=== PATIENT | female | born 1940 | race Caucasian/White ===

== ENCOUNTER 2016-04-16 14:31 | Emergency (ER) | payer MEDICARE, BC ==
[~2016-04-16] VITALS: Ht 162.6 cm; Wt 59.1 kg
[~2016-04-16 14:31] MED LIST: ACET5SOL5 PO; ALBU0.086 NEB; BACT2OIN TOP; BROMDMS PO; CARB100 PO; CIME300T PO; CITRPOW PO; CLOR1TAB21 PO; CUTI0.053 TOP; EPIP0.3I IM; ESTR.1T TD; MAGN400S7 PO; NACL5%O TOP; SPIR25 PO; TRIA3AER; [UNRECOGNIZED DRUG - CODE] PO; [UNRECOGNIZED DRUG - CODE] TOP
[2016-04-16 14:34] VITALS: BP 158/77; PULSE 60; RESP 14; TEMP 98.9; O2SAT 93
[2016-04-16 17:02] VITALS: BP 182/78; PULSE 51; RESP 18; O2SAT 96
[2016-04-16] MEDS ORDERED: GLYCERIN ADULT 2 GM SUPP RECTAL ONE (17:45)
[2016-04-16] MEDS ORDERED: MAGNESIUM CITRATE SOLN 300 ML BTL PO ONE (17:45)
[2016-04-16] MEDS ORDERED: TRIA1SPR5 EACH NARE (18:26)
[2016-04-16] MEDS ORDERED: SPIR25TA PO (18:26)
[2016-04-16] MEDS ORDERED: FINA15GE TOPICAL (18:26)
[2016-04-16] MEDS ORDERED: CIME200T23 PO (18:26)
[2016-04-16] MEDS ORDERED: [UNRECOGNIZED DRUG - CODE] TOPICAL (18:26)
[2016-04-16] MEDS ORDERED: UREA20CR TOPICAL (18:26)
[2016-04-16] MEDS ORDERED: MILKSUS PO (18:26)
[2016-04-16] MEDS ORDERED: ESTR.1T T-DERMAL (18:26)
[2016-04-16] MEDS ORDERED: TYLE160S PO (18:26)
[2016-04-16] MEDS ORDERED: ELID1CRE TOPICAL (18:26)
[2016-04-16] MEDS ORDERED: CLOR3.755 PO (18:26)
[2016-04-16 19:07] VITALS: BP 169/88; PULSE 55; RESP 18; O2SAT 96
[2016-04-16] MEDS ORDERED: MAGNSOL2 PO (19:40)
[2016-04-16] MEDS ORDERED: MIRA33504 PO (19:40)
--- NOTE | 2016-04-16 19:40 | PD ---
HPI Chief Complaint: Abdominal Pain Time Seen by Provider: 17:10 Travel History International Travel<30 days: No Contact w/Intl Traveler<30days: No Traveled to known affect area: No History of Present Illness HPI This 75-year-old woman who presents to the emergency department complaining of abdominal pain and constipation. States she hasn't really had a bowel movement in 2 weeks. She has a small pellet stools this morning. She's been taking some milk of magnesia and some enemas which have really helped. States she's had trouble with constipation before but never bad enough raft to see a doctor. She does see Dr. Montano with GI for esophageal strictures, routine colonoscopies. Only abdominal surgery is a . She is described some bloating, some nausea and vomiting. She was otherwise well. History Past Medical History Narrative Medical Esophageal strictures GERD Anemia Leaky heart valves Influenza Vaccination: No Menopausal: Yes Social History Alcohol Use: No Tobacco Use: Yes (1 PPD) Allergies-Medications (Allergen,Severity, Reaction): Coded Allergies: Advair (Verified Allergy, Severe, HIVES, TONGUE SWELLS, 04/16/16) Erythromycin (Verified Allergy, Severe, CANT BREATHE, 04/16/16) Levaquin (Verified Allergy, Severe, "ATE SKIN OFF TONGUE AND INSIDE THROAT ", 04/16/16) Lisinopril (Verified Allergy, Severe, TONGUE SWELLING, 04/16/16) MRI PRECAUTION (Verified Allergy, Severe, PLATES, 04/16/16) Metronidazole (Verified Allergy, Severe, THROAT SWELLING, 04/16/16) Penicillin (Verified Allergy, Severe, THROAT SWELLING, 04/16/16) [place] (Verified Allergy, Severe, THROAT SWELLING, 04/16/16) Adhesives (Verified Allergy, Intermediate, SKIN SORES, 04/16/16) Ampicillin (Verified Allergy, Intermediate, HIVES, 04/16/16) Ceclor (Verified Allergy, Intermediate, HIVES, 04/16/16) Contrast Media (Verified Allergy, Intermediate, HEART FAST, HIVES, 04/16/16) Crab (Verified Allergy, Intermediate, SWELLING AND REDNESS, 04/16/16) Demerol (Verified Allergy, Intermediate, SORES IN MOUTH, 04/16/16) Doxycycline (Verified Allergy, Intermediate, HIVES, 04/16/16) Floxcin (Verified Allergy, Intermediate, HIVES, 04/16/16) Keflex (Verified Allergy, Intermediate, SORE TONGUE, 04/16/16) Novocain (Verified Allergy, Intermediate, LOCALIZED SWELLING, 04/16/16) Prednisone (Verified Allergy, Intermediate, "A LITTLE THROAT SWELLING", 04/16/16) Prozac (Verified Allergy, Intermediate, HIVES, 04/16/16) Scallop (Verified Allergy, Intermediate, SWELLING REDNESS, 04/16/16) Sulfa (Verified Allergy, Intermediate, FACE RED, WHEEZING, 04/16/16) Codeine (Verified Allergy, Mild, TONGUE SORE, 04/16/16) Cortisporin (Verified Allergy, Mild, LOCALIZED REDNESS, 04/16/16) Darvon (Verified Allergy, Mild, CANT FOCUS EYES, 04/16/16) Relafen (Verified Allergy, Mild, NUMBNESS, 04/16/16) Tetanus Toxoid (Verified Allergy, Mild, LOCALIZED ERYTHEMA, PAIN, 04/16/16) Valium (Verified Allergy, Mild, DEPRESSION, 04/16/16) Zantac (Verified Allergy, Mild, SORE TONGUE, 04/16/16) Aspirin (Verified Allergy, Unknown, 04/16/16) Azithromycin (Verified Allergy, Unknown, 04/16/16) Dulcolax (Verified Allergy, Unknown, 04/16/16) Latex (Verified Allergy, Unknown, 04/16/16) Pyridium (Verified Allergy, Unknown, 04/16/16) Cortisone (Verified Adverse Reaction, Mild, INCREASE SUGAR, 04/16/16) Uncoded Allergies: SPIRIVA (Allergy, Severe, SHORT OF BREATH/ CHOKING, 09/20/12) METROLOTION 0.75% (Allergy, Mild, RASH, 09/20/12) NORITATE CREAM (Allergy, Unknown, 09/20/12) ZOTANE (Allergy, Unknown, 09/20/12) Reported Meds & Prescriptions Reported Meds & Active Scripts Active Reported Tylenol Childrens Liq (Acetaminophen) 160 Mg/5 Ml Susp 20 Ml PO Q4-6H PRN Spironolactone 25 Mg Tab 25 Mg PO DAILY PRN Nasacort Allergy 24Hr (Triamcinolone Acetonide (Nasal) 55 Mcg/Act Spr 2 [place] EACH NARE BID PRN Tagamet Hb (Cimetidine) 200 Mg Tab 200 Mg PO DIRECTED PRN Milk of Magnesia Liq (Magnesium Hydroxide) 400 Mg/5 Ml Susp 60 Ml PO DAILY PRN Urea 20 % Cre 1 Applic TOPICAL BID Apply to face Finacea Topical (Azelaic Acid) 15% Gel 1 Applic TOPICAL BID Apply and gently massage a thin layer into affected areas on the face. Elidel 1% Topical (Pimecrolimus 1% Topical) 30 Gram Cream 1 Applic TOPICAL BID Apply to face [place]-Smoothe/Fs Scalp Topical (Fluocinolone Topical) 0.01 % Oil 1 Applic TOPICAL DAILY Apply to ears [place] Patch 168 HR (Estradiol) 0.1 Mg/24 Hr Patch 1 Patch T-DERMAL EVERY 5 DAYS Remove old patch and discrad when new patch being placed. Clorazepate (Clorazepate Dipotassium) 3.75 Mg Tab 5.625 Mg PO TID Review of Systems Except as stated in HPI: all other systems reviewed are Neg Physical Exam Narrative GENERAL: 75 year-old woman, no acute distress. SKIN: Warm and dry. HEAD: Atraumatic. Normocephalic. CARDIOVASCULAR: Regular rate and rhythm. No murmur appreciated. RESPIRATORY: No accessory muscle use. Clear to auscultation. Breath sounds equal bilaterally. GASTROINTESTINAL: Normal contour and appearance. Left lower abdomen mild tenderness. Hyperactive bowel sounds. MUSCULOSKELETAL: No obvious deformities. No edema. NEUROLOGICAL: Awake and alert. No obvious cranial nerve deficits. Motor grossly within normal limits. Normal speech. PSYCHIATRIC: Appropriate mood and affect; insight and judgment normal. RECTAL: Hard stools in the rectal vault, disimpacted. Data Data Last Documented VS Vital Signs Date Time Temp Pulse Resp B/P Pulse Ox O2 Delivery O2 Flow Rate FiO2 04/16/16 19:07 55 18 169/88 96 Room Air 04/16/16 14:34 98.9 Orders Glycerin Adult Supp (Glycerin Adult Supp (04/16/16 17:45) Magnesium Citrate Liq (Citroma Liq) (04/16/16 17:45) MDM Medical Decision Making Medical Screen Exam Complete: Yes Emergency Medical Condition: Yes Differential Diagnosis Impaction, obstruction, vomiting, other Narrative Course Medical decision making 75 year-old woman with constipation, fecal impaction on exam, now disimpacted. Given glycerin suppositories and mag citrate. Some response but not substantial. Recommend MiraLAX, one more dose of magnesium citrate tomorrow, follow-up with Dr. Hilario. I don't think she has complete obstruction, or needs imaging at this time. She will return for any worsening pain, vomiting, or any other new or worsening symptoms. Diagnosis Primary Impression: Fecal impaction in rectum Additional Instructions: Continue MiraLAX tonight as prescribed. If no substantial bowel movement in 24 hours, take second dose of magnesium citrate. If you have any worsening pain, any vomiting, return to the emergency department. Follow-up with your residential appraiser in the next one to 2 weeks. Med/Other Pt SpecificInfo: Prescription(s) given Scripts Magnesium Citrate Liq 300 Ml [id number] Ml PO DIRECTED #1 BOTTLE Prov:Jaswinder Elizabeth MD 04/16/16 Polyethylene Glycol 3350 Powder (Miralax Powder)17 Gm Powd17 Gm PO DAILY #1 BOTTLE Mix and dissolve one measuring cap-ful (17 grams) in water or juice. Prov:Jaswinder Elizabeth MD 04/16/16 Disposition: 01 DISCHARGE HOME Condition: Stable Jaswinder Elizabeth MD Apr 16, 2016 19:40
== END 2016-04-16 20:25 | disposition home or self-care (01) ==
LOC: NEPE 14:31
DX: K56.41 Fecal impaction (principal); R11.2 Nausea with vomiting, unspecified; K22.2 Esophageal obstruction; F17.210 Nicotine dependence, cigarettes, uncomplicated
CPT/HCPCS: 99283

== ENCOUNTER 2017-06-20 15:21 | Emergency (ER) | payer MEDICARE, BC ==
[~2017-06-20 15:21] MED LIST changes: -ACET5SOL5 PO; -ALBU0.086 NEB; -BACT2OIN TOP; -BROMDMS PO; -CARB100 PO; +CIME200T23 PO; -CIME300T PO; -CITRPOW PO; -CLOR1TAB21 PO; +CLOR3.755 PO; -CUTI0.053 TOP; +ELID1CRE TOPICAL; -EPIP0.3I IM; +ESTR.1T T-DERMAL; -ESTR.1T TD; +FINA15GE TOPICAL; -MAGN400S7 PO; +MAGNSOL2 PO; +MILKSUS PO; +MIRA33504 PO; -NACL5%O TOP; -SPIR25 PO; +SPIR25TA PO; +TRIA1SPR5 EACH NARE; -TRIA3AER; +TYLE160S PO; +UREA20CR TOPICAL; -[UNRECOGNIZED DRUG - CODE] PO; -[UNRECOGNIZED DRUG - CODE] TOP; +[UNRECOGNIZED DRUG - CODE] TOPICAL
[2017-06-20 15:31] VITALS: BP 154/79; PULSE 65; RESP 18; TEMP 97.7; O2SAT 97
[2017-06-20 17:21] LABS: AUTOMATED NEUTROPHIL # 4.5 TH/MM3 (1.8-7.7); BASOPHIL # 0.1 TH/MM3 (0-0.2); BASOPHIL % 0.7 % (0.0-2.0); EOSINOPHIL # 0.1 TH/MM3 (0-0.4); EOSINOPHIL % 1.5 % (0.0-4.0); HEMATOCRIT 41.1 % (35.0-46.0); HEMOGLOBIN 14.4 GM/DL (11.6-15.3); LYMPH % 31.4 % (9.0-44.0); LYMPHOCYTE # 2.5 TH/MM3 (1.0-4.8); MEAN CORPUSCULAR HEMOGLOBIN 31.2 PG (27.0-34.0); MEAN CORPUSCULAR HGB CONC 35.1 % (32.0-36.0); MEAN PLATELET VOLUME 8.5 FL (7.0-11.0); MONO % 9.7 % (0.0-8.0); MONOCYTE # 0.8 TH/MM3 (0-0.9); NEUT % 56.7 % (16.0-70.0); PLATELET COUNT 194 TH/MM3 (150-450); RED BLOOD COUNT 4.61 MIL/MM3 (4.00-5.30); RED CELL DISTRIBUTION WIDTH 12.6 % (11.6-17.2); WHITE BLOOD COUNT 7.9 TH/MM3 (4.0-11.0)
--- NOTE | 2017-06-20 17:29 | PD ---
HPI Chief Complaint: GI Complaint Time Seen by Provider: 17:29 Travel History International Travel<30 days: No Contact w/Intl Traveler<30days: No Traveled to known affect area: No History of Present Illness HPI 76-year-old female presents to emergency department for evaluation of lower abdominal pain. This is the worsening over last 9 days. She states she has not had a bowel movement in 9 days except for a very small one today. She reports urinary urgency but no pain with urination. She is concerned because she has history of diverticulitis and feels like this may be that however the pain is not as severe. It is moderate in cramping in sensation. It is intermittently worse. Denies any fever or chills. No nausea or vomiting. She has no other symptoms to report. 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) Social History Alcohol Use: No Tobacco Use: Yes (1 PPD) Substance Use: No Allergies-Medications (Allergen,Severity, Reaction): Coded Allergies: MRI PRECAUTION (Verified Allergy, Severe, PLATES, 04/16/16) erythromycin base (Unverified Allergy, Severe, CANT BREATHE, 11/27/16) fluticasone (Unverified Allergy, Severe, HIVES, TONGUE SWELLS, 11/27/16) fluticasone furoate (Unverified Allergy, Severe, HIVES, TONGUE SWELLS, ) levofloxacin (Unverified Allergy, Severe, "ATE SKIN OFF TONGUE AND INSIDE THROAT", 11/27/16) lisinopril (Unverified Allergy, Severe, TONGUE SWELLING, 11/27/16) metronidazole (Unverified Allergy, Severe, THROAT SWELLING, 11/27/16) penicillin G (Unverified Allergy, Severe, THROAT SWELLING, 11/27/16) salmeterol (Unverified Allergy, Severe, HIVES, TONGUE SWELLS, 11/27/16) strawberry (Unverified Allergy, Severe, THROAT SWELLING, 11/27/16) Sulfa (Sulfonamide Antibiotics) (Unverified Allergy, Intermediate, FACE RED, WHEEZING, 11/27/16) adhesive (Unverified Allergy, Intermediate, SKIN SORES, 11/27/16) ampicillin (Unverified Allergy, Intermediate, HIVES, 11/27/16) cefaclor (Unverified Allergy, Intermediate, HIVES, 11/27/16) cephalexin (Unverified Allergy, Intermediate, SORE TONGUE, 11/27/16) crab (Unverified Allergy, Intermediate, SWELLING AND REDNESS, 11/27/16) diatrizoate meglumine (Unverified Allergy, Intermediate, HEART FAST, HIVES , 11/27/16) doxycycline (Unverified Allergy, Intermediate, HIVES, 11/27/16) fluoxetine (Unverified Allergy, Intermediate, HIVES, 11/27/16) gadobenic acid (Unverified Allergy, Intermediate, HEART FAST, HIVES, ) gadodiamide (Unverified Allergy, Intermediate, HEART FAST, HIVES, 11/27/16) gadoteridol (Unverified Allergy, Intermediate, HEART FAST, HIVES, 11/27/16) iodixanol (Unverified Allergy, Intermediate, HEART FAST, HIVES, 11/27/16) iohexol (Unverified Allergy, Intermediate, HEART FAST, HIVES, 11/27/16) meperidine (Unverified Allergy, Intermediate, SORES IN MOUTH, 11/27/16) ofloxacin (Unverified Allergy, Intermediate, HIVES, 11/27/16) prednisone (Unverified Allergy, Intermediate, "A LITTLE THROAT SWELLING", 11/27/16) procaine (Unverified Allergy, Intermediate, LOCALIZED SWELLING, 11/27/16) scallops (Unverified Allergy, Intermediate, SWELLING REDNESS, 11/27/16) bacitracin (Unverified Allergy, Mild, LOCALIZED REDNESS, 11/27/16) codeine (Unverified Allergy, Mild, TONGUE SORE, 11/27/16) diazepam (Unverified Allergy, Mild, DEPRESSION, 11/27/16) hydrocortisone (Unverified Allergy, Mild, LOCALIZED REDNESS, 11/27/16) nabumetone (Unverified Allergy, Mild, NUMBNESS, 11/27/16) neomycin (Unverified Allergy, Mild, LOCALIZED REDNESS, 11/27/16) polymyxin B (Unverified Allergy, Mild, LOCALIZED REDNESS, 11/27/16) propoxyphene (Unverified Allergy, Mild, CANT FOCUS EYES, 11/27/16) ranitidine (Unverified Allergy, Mild, SORE TONGUE, 11/27/16) tetanus toxoid, adsorbed (Unverified Allergy, Mild, LOCALIZED ERYTHEMA, PAIN, 11/27/16) aspirin (Unverified Allergy, Unknown, 11/27/16) azithromycin (Unverified Allergy, Unknown, 11/27/16) bisacodyl (Unverified Allergy, Unknown, 11/27/16) latex (Unverified Allergy, Unknown, 11/27/16) phenazopyridine (Unverified Allergy, Unknown, 11/27/16) cortisone (Unverified Adverse Reaction, Mild, INCREASE SUGAR, 11/27/16) Uncoded Allergies: SPIRIVA (Allergy, Severe, SHORT OF BREATH/ CHOKING, 09/20/12) METROLOTION 0.75% (Allergy, Mild, RASH, 09/20/12) NORITATE CREAM (Allergy, Unknown, 09/20/12) ZOTANE (Allergy, Unknown, 09/20/12) Reported Meds & Prescriptions Reported Meds & Active Scripts Active Macrobid (Nitrofurantoin Monoh/Nitrofur Macro) 100 Mg Cap 100 Mg PO BID 10 Days Magnesium Citrate Liq (Magnesium Citrate) 300 Ml Liq 300 Ml PO DIRECTED Miralax Powder (Polyethylene Glycol 3350 Powder) 17 Gm Powd 17 Gm PO DAILY Mix and dissolve one measuring cap-ful (17 grams) in water or juice. Reported Tylenol Childrens Liq (Acetaminophen) 160 Mg/5 Ml Susp 20 Ml PO Q4-6H PRN Spironolactone 25 Mg Tab 25 Mg PO DAILY PRN Nasacort Allergy 24Hr Nasal [place] (Triamcinolone Acetonide Nasal [place]) 55 Mcg/ Act Spr 2 [place] EACH NARE BID PRN Tagamet Hb (Cimetidine) 200 Mg Tab 200 Mg PO DIRECTED PRN Milk of Magnesia Liq (Magnesium Hydroxide) 400 Mg/5 Ml Susp 60 Ml PO DAILY PRN Urea 20 % Cre 1 Applic TOPICAL BID Apply to face Finacea Topical (Azelaic Acid) 15% Gel 1 Applic TOPICAL BID Apply and gently massage a thin layer into affected areas on the face. Elidel 1% Topical (Pimecrolimus 1% Topical) 30 Gram Cream 1 Applic TOPICAL BID Apply to face [place]-Smoothe/Fs Scalp Topical (Fluocinolone Topical) 0.01 % Oil 1 Applic TOPICAL DAILY Apply to ears [place] Patch 168 HR (Estradiol) 0.1 Mg/24 Hr Patch 1 Patch T-DERMAL EVERY 5 DAYS Remove old patch and discrad when new patch being placed. Clorazepate (Clorazepate Dipotassium) 3.75 Mg Tab 5.625 Mg PO TID Review of Systems Except as stated in HPI: all other systems reviewed are Neg Physical Exam Narrative GENERAL: Well-nourished elderly female patient, ambulatory and in no acute distress. SKIN: Focused skin assessment warm/dry. HEAD: Atraumatic. Normocephalic. EYES: Pupils equal and round. No scleral icterus. No injection or drainage. ENT: No nasal bleeding or discharge. Mucous membranes pink and moist. NECK: Trachea midline. No JVD. CARDIOVASCULAR: Regular rate and rhythm. RESPIRATORY: No accessory muscle use. Clear to auscultation. Breath sounds equal bilaterally. GASTROINTESTINAL: Abdomen soft, nondistended. Mid lower abdominal tenderness to palpation. No guarding. No rebound tenderness. Hepatic and splenic margins not palpable. MUSCULOSKELETAL: No obvious deformities. No clubbing. No cyanosis. No edema. NEUROLOGICAL: Awake and alert. No obvious cranial nerve deficits. Motor grossly within normal limits. Normal speech. PSYCHIATRIC: Appropriate mood and affect; insight and judgment normal. Data Data Last Documented VS Vital Signs Date Time Temp Pulse Resp B/P (MAP) Pulse Ox O2 Delivery O2 Flow Rate FiO2 06/20/17 22:06 06/20/17 18:16 55 98 Room Air 06/20/17 15:31 97.7 18 Orders Orders Complete Blood Count With Diff (06/20/17 15:33) Comprehensive Metabolic Panel (06/20/17 15:33) Urinalysis - C+S If Indicated (06/20/17 15:33) Iv Access Insert/Monitor (06/20/17 15:33) Oxygen Administration (06/20/17 15:33) Oximetry (06/20/17 15:33) Lipase (06/20/17 15:33) Act Partial Throm Time (Ptt) (06/20/17 15:34) Prothrombin Time / Inr (Pt) (06/20/17 15:34) Ct Abd/Pel W/O Iv Contrast (06/20/17 ) Urine Culture (06/20/17 18:00) Bucket, Enema Cleansing Ea (06/20/17 20:31) Enema Administration PRN (06/20/17 20:31) Ed Discharge Order (06/20/17 21:52) Labs Laboratory Tests Test 06/20/17 16:13 06/20/17 18:00 White Blood Count 7.9 TH/MM3 Red Blood Count 4.61 MIL/MM3 Hemoglobin 14.4 GM/DL Hematocrit 41.1 % Mean Corpuscular Volume 89.0 FL Mean Corpuscular Hemoglobin 31.2 PG Mean Corpuscular Hemoglobin Concent 35.1 % Red Cell Distribution Width 12.6 % Platelet Count 194 TH/MM3 Mean Platelet Volume 8.5 FL Neutrophils (%) (Auto) 56.7 % Lymphocytes (%) (Auto) 31.4 % Monocytes (%) (Auto) 9.7 % Eosinophils (%) (Auto) 1.5 % Basophils (%) (Auto) 0.7 % Neutrophils # (Auto) 4.5 TH/MM3 Lymphocytes # (Auto) 2.5 TH/MM3 Monocytes # (Auto) 0.8 TH/MM3 Eosinophils # (Auto) 0.1 TH/MM3 Basophils # (Auto) 0.1 TH/MM3 CBC Comment DIFF FINAL Differential Comment Prothrombin Time 10.0 SEC Prothromb Time International Ratio 1.0 RATIO Activated Partial Thromboplast Time 27.8 SEC Blood Urea Nitrogen 10 MG/DL Creatinine 0.87 MG/DL Random Glucose 92 MG/DL Total Protein 7.2 GM/DL Albumin 3.6 GM/DL Calcium Level 9.4 MG/DL Alkaline Phosphatase 99 U/L Aspartate Amino Transf (AST/SGOT) 15 U/L Alanine Aminotransferase (ALT/SGPT) 16 U/L Total Bilirubin 0.4 MG/DL Sodium Level 137 MEQ/L Potassium Level 3.9 MEQ/L Chloride Level 101 MEQ/L Carbon Dioxide Level 30.5 MEQ/L Anion Gap 6 MEQ/L Estimat Glomerular Filtration Rate 63 ML/MIN Lipase 115 U/L Urine Color YELLOW Urine Turbidity CLOUDY Urine pH 7.5 Urine Specific [place] 1.017 Urine Protein 30 mg/dL Urine Glucose (UA) NEG mg/dL Urine Ketones NEG mg/dL Urine Occult Blood NEG Urine Nitrite NEG Urine Bilirubin NEG Urine Urobilinogen LESS THAN 2.0 MG/DL Urine Leukocyte Esterase TRACE Urine WBC 29 /hpf Urine Squamous Epithelial Cells 56 /hpf Urine Bacteria MANY /hpf Urine Mucus FEW /lpf Microscopic Urinalysis Comment CULTURE INDICATED MDM Medical Decision Making Medical Screen Exam Complete: Yes Emergency Medical Condition: Yes Medical Record Reviewed: Yes Differential Diagnosis UTI versus renal calculi versus colitis versus diverticulitis versus constipation Narrative Course 76-year-old female presents emergency department for evaluation of lower abdominal pain. Patient appears nontoxic. Her vital signs are stable. Lab work is initiated in triage. Laboratory Tests Test 06/20/17 16:13 06/20/17 18:00 White Blood Count 7.9 TH/MM3 Red Blood Count 4.61 MIL/MM3 Hemoglobin 14.4 GM/DL Hematocrit 41.1 % Mean Corpuscular Volume 89.0 FL Mean Corpuscular Hemoglobin 31.2 PG Mean Corpuscular Hemoglobin Concent 35.1 % Red Cell Distribution Width 12.6 % Platelet Count 194 TH/MM3 Mean Platelet Volume 8.5 FL Neutrophils (%) (Auto) 56.7 % Lymphocytes (%) (Auto) 31.4 % Monocytes (%) (Auto) 9.7 % Eosinophils (%) (Auto) 1.5 % Basophils (%) (Auto) 0.7 % Neutrophils # (Auto) 4.5 TH/MM3 Lymphocytes # (Auto) 2.5 TH/MM3 Monocytes # (Auto) 0.8 TH/MM3 Eosinophils # (Auto) 0.1 TH/MM3 Basophils # (Auto) 0.1 TH/MM3 CBC Comment DIFF FINAL Differential Comment Prothrombin Time 10.0 SEC Prothromb Time International Ratio 1.0 RATIO Activated Partial Thromboplast Time 27.8 SEC Blood Urea Nitrogen 10 MG/DL Creatinine 0.87 MG/DL Random Glucose 92 MG/DL Total Protein 7.2 GM/DL Albumin 3.6 GM/DL Calcium Level 9.4 MG/DL Alkaline Phosphatase 99 U/L Aspartate Amino Transf (AST/SGOT) 15 U/L Alanine Aminotransferase (ALT/SGPT) 16 U/L Total Bilirubin 0.4 MG/DL Sodium Level 137 MEQ/L Potassium Level 3.9 MEQ/L Chloride Level 101 MEQ/L Carbon Dioxide Level 30.5 MEQ/L Anion Gap 6 MEQ/L Estimat Glomerular Filtration Rate 63 ML/MIN Lipase 115 U/L Urine Color YELLOW Urine Turbidity CLOUDY Urine pH 7.5 Urine Specific [place] 1.017 Urine Protein 30 mg/dL Urine Glucose (UA) NEG mg/dL Urine Ketones NEG mg/dL Urine Occult Blood NEG Urine Nitrite NEG Urine Bilirubin NEG Urine Urobilinogen LESS THAN 2.0 MG/DL Urine Leukocyte Esterase TRACE Urine WBC 29 /hpf Urine Squamous Epithelial Cells 56 /hpf Urine Bacteria MANY /hpf Urine Mucus FEW /lpf Microscopic Urinalysis Comment CULTURE INDICATED Last Impressions Abdomen/Pelvis CT 06/20/17 0000 Signed Impressions: Service Date/Time: June 19:53 - CONCLUSION: No acute findings in the abdomen or pelvis. Colonic diverticula without radiographic evidence of diverticulitis. Dawson Phipps MD Patient is given a soapsuds enema. I have reviewed the findings with my attending physician. Patient be treated for UTI. She'll be discharged home to follow-up with her primary care provider. She agrees to return immediately with any acute worsening of symptoms. Diagnosis Primary Impression: Lower abdominal pain Additional Impressions: UTI (urinary tract infection) Qualified Codes: N39.0 - Urinary tract infection, site not specified; R31.9 - Hematuria, unspecified Constipation Qualified Codes: K59.00 - Constipation, unspecified Referrals: Primary Care Physician Patient Instructions: Constipation (ED), General Instructions, Urinary Tract Infection in Women (ED) Additional Instructions: Maintain adequate oral hydration Add MiraLAX to your diet as directed on the package daily to help soften her stool and keep BMs regular Follow-up with a primary care provider Follow-up with gastroenterology Return immediately with any acute worsening symptoms Med/Other Pt SpecificInfo: Prescription(s) given Scripts Nitrofurantoin Monohydrate Macrocrystals (Macrobid) 100 Mg Cap 100 MG PO BID for Infection for 10 Days, #20 CAP 0 Refills Prov: Deepali De La Cruz 06/20/17 Disposition: 01 DISCHARGE HOME Condition: Stable Deepali De La Cruz Jun 20, 2017 17:29
[2017-06-20 17:39] LABS: ALBUMIN 3.6 GM/DL (3.4-5.0); ALT (GPT) 16 U/L (10-53); AST (GOT) 15 U/L (15-37); BICARBONATE 30.5 MEQ/L (21.0-32.0); CALCIUM 9.4 MG/DL (8.5-10.1); CHLORIDE 101 MEQ/L (98-107); CREATININE 0.87 MG/DL (0.50-1.00); GLOMERULAR FILTRATION RATE 63 ML/MIN (>89); GLUCOSE,RANDOM 92 MG/DL (74-106); SODIUM (NA) 137 MEQ/L (136-145)
[2017-06-20 17:43] LABS: ALKALINE PHOSPHATASE 99 U/L (45-117); BLOOD UREA NITROGEN 10 MG/DL (7-18); TOTAL BILIRUBIN ADULT 0.4 MG/DL (0.2-1.0); TOTAL PROTEIN 7.2 GM/DL (6.4-8.2)
[2017-06-20 18:16] VITALS: BP 150/75; PULSE 55; O2SAT 98
[2017-06-20 19:20] LABS: BACTERIA, URINE MANY /hpf; BILIRUBIN, URINE NEG (NEG); BLOOD, URINE NEG (NEG); GLUCOSE,URINE NEG (NEG); KETONE, URINE NEG (NEG); MUCUS URINE FEW /lpf (OCC); NITRITE,URINE NEG (NEG); PH, URINE 7.5 (5.0-8.5); SQUAMOUS EPITHELIAL CELL URINE 56 /hpf (0-5); URINE COLOR YELLOW (YELLW/STRAW); URINE LEUKOCYTE ESTERASE TRACE (NEG)
--- NOTE | 2017-06-20 20:18 | RADRPT ---
EXAM DATE/TIME: 06/20/2017 19:53 [facility] COMPARISON: No previous studies available for comparison. INDICATIONS : Abdominal pain. ORAL CONTRAST: No oral contrast ingested. RADIATION DOSE: 5.62 CTDIvol (mGy) MEDICAL HISTORY : Diverticulitis. SURGICAL HISTORY : Bladder lift. ENCOUNTER: Initial ACUITY: 1 day PAIN SCALE: 8/10 LOCATION: diffuse abdomen TECHNIQUE: Volumetric scanning of the abdomen and pelvis was performed. Using automated exposure control and ad justment of the mA and/or kV according to patient size, radiation dose was kept as low as reasonably achievable to obtain optimal diagnostic quality images. DICOM format image data is available electro nically for review and comparison. FINDINGS: LOWER LUNGS: The visualized lower lungs are clear. LIVER: Homogeneous density without lesion for noncontrast technique. There is no dilation of the biliary tr ee. No calcified gallstones. SPLEEN: Normal size without lesion. PANCREAS: Within normal limits. KIDNEYS: Normal in size and shape. There is no mass, stone, or hydronephrosis. ADRENAL GLANDS: Within normal limits. VASCULAR: There is no aortic aneurysm. BOWEL/MESENTERY: No dilated loops of small or large bowel. Scattered diverticula are present in the left colon and si gmoid colon without radiographic evidence of diverticulitis. No evidence of free fluid. ABDOMINAL WALL: Within normal limits. RETROPERITONEUM: There is no lymphadenopathy. BLADDER: No wall thickening or mass. REPRODUCTIVE: Within normal limits. INGUINAL: There is no lymphadenopathy or hernia. MUSCULOSKELETAL: No fracture of the right inferior pubic ramus. Moderate hypertrophic changes in the facet joints L5- S1. CONCLUSION: No acute findings in the abdomen or pelvis. Colonic diverticula without radiographic evidence of div erticulitis. Dawson Phipps MD on June 20, 2017 at 20:13 Board Certified Radiologist. This report was verified electronically.
[2017-06-20] MEDS ORDERED: MACR100C2 PO (21:55)
== END 2017-06-20 22:10 | disposition home or self-care (01) ==
LOC: NEPE 15:21
DX: N39.0 Urinary tract infection, site not specified (principal); R31.9 Hematuria, unspecified; K59.00 Constipation, unspecified; J45.909 Unspecified asthma, uncomplicated; K21.9 Gastro-esophageal reflux disease without esophagitis; F17.200 Nicotine dependence, unspecified, uncomplicated
CPT/HCPCS: 74176; 80053; 81001; 83690; 85025; 85610; 85730; 87086; 99284

== ENCOUNTER 2017-08-19 12:02 | Emergency (ER) | payer MEDICARE, BC ==
[~2017-08-19] VITALS: Ht 162.6 cm; Wt 60.0 kg
[~2017-08-19 12:02] MED LIST changes: +MACR100C2 PO
[2017-08-19 12:06] VITALS: BP 110/77; PULSE 70; RESP 18; TEMP 98.1; O2SAT 96
[2017-08-19] MEDS ORDERED: ACET5DRO2 PO (13:02)
[2017-08-19] MEDS ORDERED: TYLE160S PO (13:02)
--- NOTE | 2017-08-19 14:11 | PD ---
HPI Chief Complaint: Pain: Acute or Chronic Time Seen by Provider: 13:12 Travel History International Travel<30 days: No Contact w/Intl Traveler<30days: No Traveled to known affect area: No History of Present Illness HPI 76-year-old female presents to the emergency room for evaluation of left hip and knee pain for the past 3 days. Patient states she was standing at her sink doing dishes when she twisted her hips to the left. She heard a pop and had immediate pain localized to the left medial knee. She has not been able to walk since then without significant pain. She has been using her cane at home and screaming to get around. She finally called her neighbor today who brought her to the emergency room. Patient states pain is mostly in the left lateral hip and shoots all the way down to her left medial knee. She has been applying ice without any relief in symptoms. She has also been taking liquid Tylenol with moderate relief in symptoms. She denies any paresthesias. She lives alone. PFSH Past Medical History Anemia: Yes Asthma: Yes Cardiovascular Problems: Yes (MURMUR, VALVE LEAK) Diminished Hearing: No Endocrine: Yes (HYPOGLYCEMIA) Gastrointestinal Disorders: Yes (DIVERTICULITIS, ANEURYSM, ESOPHAGEAL STRICTURE ) GERD: Yes Integumentary: Yes (TOSCANO) Immunizations Current: No Triglycerides - High: Yes Ulcer: Yes ?: Not Menopausal: Yes Past Surgical History Abdominal Surgery: Yes (BLADDER LIFT) Hysterectomy: Yes Tonsillectomy: Yes Other Surgery: Yes (SKIN GRAFT FOR TOSCANO, SKIN TUMOR REMOVED FROM BACK) Social History Alcohol Use: No Tobacco Use: Yes Substance Use: No Allergies-Medications (Allergen,Severity, Reaction): Coded Allergies: MRI PRECAUTION (Verified Allergy, Severe, PLATES, 04/16/16) erythromycin base (Unverified Allergy, Severe, CANT BREATHE, 08/19/17) fluticasone (Unverified Allergy, Severe, HIVES, TONGUE SWELLS, 08/19/17) fluticasone furoate (Unverified Allergy, Severe, HIVES, TONGUE SWELLS, 08/19) levofloxacin (Unverified Allergy, Severe, "ATE SKIN OFF TONGUE AND INSIDE THROAT", 08/19/17) lisinopril (Unverified Allergy, Severe, TONGUE SWELLING, 08/19/17) metronidazole (Unverified Allergy, Severe, THROAT SWELLING, 08/19/17) penicillin G (Unverified Allergy, Severe, THROAT SWELLING, 08/19/17) salmeterol (Unverified Allergy, Severe, HIVES, TONGUE SWELLS, 08/19/17) strawberry (Unverified Allergy, Severe, THROAT SWELLING, 08/19/17) Sulfa (Sulfonamide Antibiotics) (Unverified Allergy, Intermediate, FACE RED, WHEEZING, 08/19/17) adhesive (Unverified Allergy, Intermediate, SKIN SORES, 08/19/17) ampicillin (Unverified Allergy, Intermediate, HIVES, 08/19/17) cefaclor (Unverified Allergy, Intermediate, HIVES, 08/19/17) cephalexin (Unverified Allergy, Intermediate, SORE TONGUE, 08/19/17) crab (Unverified Allergy, Intermediate, SWELLING AND REDNESS, 08/19/17) diatrizoate meglumine (Unverified Allergy, Intermediate, HEART FAST, HIVES , 08/19/17) doxycycline (Unverified Allergy, Intermediate, HIVES, 08/19/17) fluoxetine (Unverified Allergy, Intermediate, HIVES, 08/19/17) gadobenic acid (Unverified Allergy, Intermediate, HEART FAST, HIVES, ) gadodiamide (Unverified Allergy, Intermediate, HEART FAST, HIVES, 08/19/17) gadoteridol (Unverified Allergy, Intermediate, HEART FAST, HIVES, 08/19/17) iodixanol (Unverified Allergy, Intermediate, HEART FAST, HIVES, 08/19/17) iohexol (Unverified Allergy, Intermediate, HEART FAST, HIVES, 08/19/17) meperidine (Unverified Allergy, Intermediate, SORES IN MOUTH, 08/19/17) ofloxacin (Unverified Allergy, Intermediate, HIVES, 08/19/17) prednisone (Unverified Allergy, Intermediate, "A LITTLE THROAT SWELLING", 08/19/17) procaine (Unverified Allergy, Intermediate, LOCALIZED SWELLING, 08/19/17) scallops (Unverified Allergy, Intermediate, SWELLING REDNESS, 08/19/17) bacitracin (Unverified Allergy, Mild, LOCALIZED REDNESS, 08/19/17) codeine (Unverified Allergy, Mild, TONGUE SORE, 08/19/17) diazepam (Unverified Allergy, Mild, DEPRESSION, 08/19/17) hydrocortisone (Unverified Allergy, Mild, LOCALIZED REDNESS, 08/19/17) nabumetone (Unverified Allergy, Mild, NUMBNESS, 08/19/17) neomycin (Unverified Allergy, Mild, LOCALIZED REDNESS, 08/19/17) polymyxin B (Unverified Allergy, Mild, LOCALIZED REDNESS, 08/19/17) propoxyphene (Unverified Allergy, Mild, CANT FOCUS EYES, 08/19/17) ranitidine (Unverified Allergy, Mild, SORE TONGUE, 08/19/17) tetanus toxoid, adsorbed (Unverified Allergy, Mild, LOCALIZED ERYTHEMA, PAIN, 08/19/17) aspirin (Unverified Allergy, Unknown, 08/19/17) azithromycin (Unverified Allergy, Unknown, 08/19/17) bisacodyl (Unverified Allergy, Unknown, 08/19/17) latex (Unverified Allergy, Unknown, 08/19/17) phenazopyridine (Unverified Allergy, Unknown, 08/19/17) cortisone (Unverified Adverse Reaction, Mild, INCREASE SUGAR, 08/19/17) Uncoded Allergies: SPIRIVA (Allergy, Severe, SHORT OF BREATH/ CHOKING, 09/20/12) METROLOTION 0.75% (Allergy, Mild, RASH, 09/20/12) NORITATE CREAM (Allergy, Unknown, 09/20/12) ZOTANE (Allergy, Unknown, 09/20/12) Reported Meds & Prescriptions Reported Meds & Active Scripts Active Magnesium Citrate Liq (Magnesium Citrate) 300 Ml Liq 300 Ml PO DIRECTED Reported Tylenol Liq (Acetaminophen) 160 Mg/5 Ml Susp 160 Mg PO ONCE Spironolactone 25 Mg Tab 25 Mg PO DAILY PRN Nasacort Allergy 24Hr Nasal [place] (Triamcinolone Acetonide Nasal [place]) 55 Mcg/ Act Spr 2 [place] EACH NARE BID PRN Tagamet Hb (Cimetidine) 200 Mg Tab 200 Mg PO DIRECTED PRN Milk of Magnesia Liq (Magnesium Hydroxide) 400 Mg/5 Ml Susp 60 Ml PO DAILY PRN Urea 20 % Cre 1 Applic TOPICAL BID Apply to face Finacea Topical (Azelaic Acid) 15% Gel 1 Applic TOPICAL BID Apply and gently massage a thin layer into affected areas on the face. Elidel 1% Topical (Pimecrolimus 1% Topical) 30 Gram Cream 1 Applic TOPICAL BID Apply to face [place]/Fs Scalp Topical (Fluocinolone Topical) 0.01 % Oil 1 Applic TOPICAL DAILY Apply to ears Climara Patch 168 HR (Estradiol) 0.1 Mg/24 Hr Patch 1 Patch T-DERMAL EVERY 5 DAYS Remove old patch and discrad when new patch being placed. Clorazepate (Clorazepate Dipotassium) 3.75 Mg Tab 5.625 Mg PO TID Review of Systems Except as stated in HPI: all other systems reviewed are Neg Physical Exam Narrative GENERAL: Well-nourished, well-developed female no acute distress. Afebrile. SKIN: Focused skin assessment warm/dry. HEAD: Normocephalic. EYES: No scleral icterus. No injection or drainage. NECK: Supple, trachea midline. No JVD or lymphadenopathy. CARDIOVASCULAR: Regular rate and rhythm without murmurs, gallops, or rubs. RESPIRATORY: Breath sounds equal bilaterally. No accessory muscle use. MSK: Somewhat limited range of motion of the left hip secondary to pain. Full range of motion of the knee. Tenderness to palpation of the left medial knee and left hip. 2+ dorsalis pedis pulse. Hips seem stable. No rotation or shortening. 2+ nonpitting edema of the entire left lower extremity. BACK: Nontender without obvious deformity. No CVA tenderness. Data Data Last Documented VS Vital Signs Date Time Temp Pulse Resp B/P (MAP) Pulse Ox O2 Delivery O2 Flow Rate FiO2 08/19/17 12:06 98.1 70 18 110/77 (88) 96 Orders Orders Knee, Complete (4vws) (08/19/17 ) Hip, Uni(Ap&Lat) W Ap Pelvis (08/19/17 ) Us Leg Venous Doppler (08/19/17 ) Ct Hip W/O Contrast (08/19/17 ) Ed Discharge Order (08/19/17 15:45) MDM Medical Decision Making Medical Screen Exam Complete: Yes Emergency Medical Condition: Yes Medical Record Reviewed: Yes Differential Diagnosis Fracture, sprain, strain, contusion, dislocation Narrative Course 76-year-old female presents to the emergency room for evaluation of left hip and left medial knee pain after injuring it 3 days ago. Patient was standing at her sink when she twisted and felt immediate pop and pain especially in the knee. Since then she has had significant pain with ambulation of the entire left lower extremity. She has had worsening swelling of the leg. Left lower extremity is neurovascularly intact with 2+ dorsalis pedis pulse. Patient has full range of motion of the knee. Somewhat limited range of motion of the hip secondary to pain. Moderate tenderness to palpation of the hip and left medial knee. There is 2+ nonpitting edema of the leg. X-ray of the hip and knee are negative. CT is negative for acute abnormality. At this time ultrasound was ordered. Ultrasound is negative except for Lozano's cyst. Patient lives alone and has had difficulty with activities of daily living because of the pain. She is able to take short steps but with extreme pain and is at high risk for falls. She almost fell twice yesterday but was able to catch her balance. I recommend physical therapy consultation. My attending physician, Dr. Chaves, requested home physical therapy. Patient made aware. She is stable for outpatient follow-up. Tylenol is the only medication patient can handle so that was recommended. She understands and agrees to plan. Diagnosis Primary Impression: Left hip pain Additional Impression: Left medial knee pain Referrals: Primary Care Physician Additional Instructions: Take Tylenol as directed on box. Follow-up with primary care physician. Return to the emergency room for worsening symptoms. Disposition: 01 DISCHARGE HOME Condition: Stable Monique George August 19, 2017 14:11
--- NOTE | 2017-08-19 14:13 | RADRPT ---
EXAM DATE/TIME: 08/19/2017 13:53 [facility] COMPARISON: No previous studies available for comparison. INDICATIONS : Posterior left knee pain after twisting body a few days ago. MEDICAL HISTORY : Diverticulitis. SURGICAL HISTORY : Bladder lift. ENCOUNTER: Initial ACUITY: 4 - 6 days PAIN SCORE: 9/10 LOCATION: Left knee. FINDINGS: Four view examination of the left knee demonstrates no evidence of fracture or dislocation. Bony min eralization is normal. The articular surfaces are intact. The suprapatellar soft tissues have a nor mal configuration. CONCLUSION: Negative for fracture or dislocation. Follow up in 7-10 days is suggested if symptoms persist. Stefano Turner MD FACR on August 19, 2017 at 14:11 Board Certified Radiologist. This report was verified electronically.
--- NOTE | 2017-08-19 14:13 | RADRPT ---
EXAM DATE/TIME: 08/19/2017 13:53 [facility] COMPARISON: No previous studies available for comparison. INDICATIONS : Posterior left hip pain after twisting body wrong a few days ago. MEDICAL HISTORY : Diverticulitis. SURGICAL HISTORY : Bladder lift. ENCOUNTER: Initial ACUITY: 4 - 6 days PAIN SCORE: 9/10 LOCATION: Left hip. FINDINGS: Examination of the left hip was performed with AP Pelvis. The primary and secondary trabecular patte rn of the femoral neck is intact. The hip joint is of normal width without significant sclerosis or bony hypertrophy. The acetabulum is grossly intact. Mild degenerative changes symphysis pubis. CONCLUSION: Mild degenerative changes pubic symphysis, negative for fracture Stefano Turner MD FACR on August 19, 2017 at 14:10 Board Certified Radiologist. This report was verified electronically.
--- NOTE | 2017-08-19 15:00 | RADRPT ---
EXAM DATE/TIME: 08/19/2017 14:32 [facility] COMPARISON: No previous studies available for comparison. EXTERNAL COMPARISON : [facility], US LEG VENOUS DOPPLER, BILATERAL, January 21, 2015 INDICATIONS : Left leg swelling. MEDICAL HISTORY : Diverticulitis. Hyperlipidemia. Heart murmur. Valve leak. Aneurysm. Asthma. Esophageal stricture . Ulcer. GERD. Hypoglycemia. Anemia. SURGICAL HISTORY : Tonsillectomy. Hysterectomy. Bladder lift. Neck surgery. Left arm surgery. Right fifth digit remove d. Skin graft for baig. Skin tumor removed from back. ENCOUNTER: Initial ACUITY: 3 days PAIN SCORE: 9/10 LOCATION: Left leg. TECHNIQUE: Venous ultrasound of the leg was performed from the inguinal ligament to the proximal calf. Real-daniel e, color Doppler and spectral tracing, compression and augmentation techniques were used. FINDINGS: There is normal compressibility of the deep venous system from the inguinal region to the proximal ca lf. No echogenic clot is seen in the lumen of the common femoral, femoral, popliteal, and posterior tibial veins. There is a normal response of the venous system to proximal and distal augmentation an d respiration. CONCLUSION: Negative for deep venous thrombosis. Small 4 cm x 2 cm popliteal cyst.. Stefano Turner MD FACR on August 19, 2017 at 14:57 Board Certified Radiologist. This report was verified electronically.
--- NOTE | 2017-08-19 15:15 | RADRPT ---
EXAM DATE/TIME: 08/19/2017 14:53 [facility] COMPARISON: HIP LEFT (AP&LAT 2/3VWS) W AP PELVIS, August 19, 2017, 13:53. INDICATIONS : Left hip pain today. RADIATION DOSE: 26.77 CTDIvol (mGy) MEDICAL HISTORY : Cardiovascular disease. SURGICAL HISTORY : Hysterectomy. bladder lift ENCOUNTER: Initial ACUITY: 1 day PAIN SCALE: 8/10 LOCATION: Left hip TECHNIQUE: Volumetric scanning of the hip was performed. Using automated exposure control and adjustment of the mA and/or kV according to patient size, radiation dose was kept as low as reasonably achievable to o btain optimal diagnostic quality images. DICOM format image data is available electronically for rev iew and comparison. FINDINGS: BONES: There appeared to be old healed fracture deformities posteriorly in the right ilium adjacent the SI j oint as well as in the right inferior pubic ramus. No acute fracture, however. JOINTS: Vacuum joint phenomenon, right SI joint. Marked facet hypertrophy/arthrosis at L5-S1 SOFT TISSUES: Muscles, tendons and neurovascular structures are grossly unremarkable. No evidence of mass, organize d fluid collection, or foreign body. Severe diverticular disease of the visualized portions of the de scending and sigmoid colon. Patient is status post hysterectomy. CONCLUSION: 1. Old healed fracture deformities posteriorly in the right ilium near the SI joint and in the inferi or right pubic ramus. 2. No acute fracture. 3. Marked degenerative disease in the descending and sigmoid portions of the colon without diverticul itis. 4. Facet hypertrophy/arthrosis at the lumbosacral junction. Tenzin Garcia MD on August 19, 2017 at 15:07 Board Certified Radiologist. This report was verified electronically.
--- NOTE | 2017-08-19 16:02 | HHI.FF ---
Face to Face Verification Diagnosis: (1) Left hip pain (2) Left medial knee pain Physical Therapy Order: Evaluate and Treat, Improve ambulation, Strength and gait training I have seen patient Estefania Cornejo on 08/19/17. My clinical findings support the need for the requested home health care services because: High risk of falls I certify that my clinical findings support that this patient is homebound because: Unsteady gait/balance Unable to use public transportation Leeann Chaves MD August 19, 2017 16:02
== END 2017-08-19 16:52 | disposition home or self-care (01) ==
LOC: NEPK 12:02
DX: M25.552 Pain in left hip (principal); M25.562 Pain in left knee; M79.89 Other specified soft tissue disorders; J45.909 Unspecified asthma, uncomplicated
CPT/HCPCS: 73502; 73564; 73700; 93971